=== PATIENT | male | born 1990 | race Caucasian/White ===

== ENCOUNTER 2018-02-24 15:48 | Emergency (ER) | payer OTHER, SELFPAY ==
[2018-02-24 15:49] VITALS: BP 133/74; PULSE 80; RESP 18; TEMP 36.7; O2SAT 100; BMI 25.9
--- NOTE | 2018-02-24 15:56 | RAD_ITS ---
STUDY: X-RAY - RIGHT SHOULDER REASON FOR EXAM: Male, 27 years old. Shoulder injury. TECHNIQUE: 4 view(s) of the shoulder. COMPARISON: None. FINDINGS: Normal glenohumeral articulation. Normal acromioclavicular joint. Normal acromion. Normal humeral head and visualized proximal humerus. The soft tissue structures are unremarkable. Normal visualized pulmonary apex. RAD/Shoulder min 2 Views IMPRESSION: Within normal limits x-ray examination of the shoulder. Electronically Signed: Mehnaz Sweeney MD at 16:17 EDT Tel , Service support ,
--- NOTE | 2018-02-24 16:26 | ED.VISSUMM ---
- ER Visit Summary Date of Service: 02/24/18 Chief Complaint: Right shoulder pain History of Present Illness: The patient is a 27 M [id number] presenting with right shoulder pain. He frequently dislocates his right shoulder but has never seen an orthopedic surgeon for. He states that he has dislocated it approximately 8-10 times this year, most recently 5 days ago. The pain typically resolves after a few days but it has now persisted. He denies paresthesias or weakness. He has not been wearing a sling are soft. Physical Examination: Mild tenderness right shoulder laterally but still has full range of motion. Strong distal pulse. Normal sensation over the axillary nerve distribution. Test Results: Right shoulder x-ray negative for acute process Emergency Department Course and Treatment: Was placed in a sling and swath. He was referred to orthopedics and I stressed the importance of follow-up since he is dislocating so often. He will return if worse. Treatment Plan: Follow-up up with orthopedics Disposition: Home stable Impression: Initial encounter right shoulder dislocation This note was generated with Spontly dictation software. It may contain incorrect words, spelling, and punctuation that were not noted in review of the chart prior to signing ED Disposition - Plan for ED Patient: Chief Complaint: Upper Extremity Injury Instructions: ED Shoulder Pain [facility] Prescriptions: Naproxen [Naprosyn] 500 mg PO BID #20 tablet Referrals: Jamari Gar MD [STAFF PHYSICIAN] -
== END 2018-02-24 16:53 | disposition home or self-care (01) ==
LOC: ED 16:20
PROVIDERS: Emergency Provider Emergency Medicine
DX: M24.411 Recurrent dislocation, right shoulder (principal)
CPT/HCPCS: 73030; 99282

== ENCOUNTER → 2018-03-06 08:55 | Outpatient (CLI) | payer OTHER, SELFPAY ==
--- NOTE | 2018-03-06 09:02 | MRI_ITS ---
STUDY: MRI ARTHROGRAM RIGHT SHOULDER REASON FOR EXAM: Male, 27 years old. Recurrent dislocation right shoulder. Right shoulder pain extending down arm. TECHNIQUE: T1 fat suppressed images were obtained in all three orthogonal planes. The exam was performed following intra-articular injection of 10ml of solution of .08 ml of Magnevist in 10ml of saline by Dr Carty There was some movement on this exam most notable on the axial and the ABER positions. COMPARISON: Images from the arthrogram prior to the MRI and x-ray right shoulder February 24, 2018 FINDINGS: There is intra-articular contrast distention of the glenohumeral articulation, secondary to the gadolinium injection, with adequate capsular distention. Normal biceps labral complex. Normal superior labrum. Normal anterior and posterior esther. Note that a subtle tear may be difficult to visualize due to the motion on multiple images There is humeral avulsion of the inferior glenohumeral ligament, refer to series 3 images 9 through 3. Only a wisp of the posterior aspect of the inferior glenohumeral ligament appears to remain attached as seen on image #4. I do not see evident cortical avulsion of the humerus. Rotator interval appears patulous, refer to image #11 series 7. There does appear Hill-Sachs deformity of the posterior superior humeral head with flattening of the humeral head and bone marrow edema, for instance refer to sagittal oblique images 6 and 7 series 6. Normal supraspinatus tendon. Normal infraspinatus tendon. Normal subscapularis tendon. Normal teres minor tendon. There is no demonstrated tear of the rotator cuff. Normal glenohumeral articulation. There is no osteochondral defect. MRI/Upper Ext Jt Only W/Contrast IMPRESSION: Hill-Sachs deformity of the posterior superior humeral head. There is motion on this study, I do not see evident labral Bankart but I do note that there appears tear of the inferior glenohumeral ligament. No evidence of rotator cuff tear. Electronically Signed: Arlene Whiting MD at 15:18 EST , Service support ,
--- NOTE | 2018-03-06 09:05 | RAD_ITS ---
CLINICAL HISTORY: Male, 27 years old. History of recurrent right shoulder dislocation. PROCEDURE: ARTHROGRAM - RIGHT SHOULDER. CONSENT: The procedure as well as the benefits and possible complications including infection and bleeding were explained to the patient. Informed consent was obtained. FLUOROSCOPY TIME (if supplied): (1:00) minutes/seconds. Injection Information: 10 cc of dilute MRI contrast material. Number of images obtained: 4 TECHNIQUE: (All elements of maximal sterile barrier technique followed, including US elements as applicable) The patient was in the supine position. The overlying skin was prepped and draped in the usual sterile fashion. Following local anesthetic application and under direct fluoroscopic guidance, a 22-gauge spinal needle was placed into the shoulder joint. 2 cc of Isovue-300 was injected for confirmation. Following this, 10 cc of dilute MRI contrast was injected. The patient tolerated the procedure well. RAD/Arthrogram Shoulder w/ MRI IMPRESSION: Successful right shoulder arthrogram with injection of dilute MRI contrast. The patient tolerated the procedure well. Electronically Signed: Jamar Carty MD at 11:14 EST Tel [phone], Service support ,
== END ==
PROVIDERS: Referring Provider Specialist; Visit Provider Specialist
DX: M24.411 Recurrent dislocation, right shoulder (principal)
CPT/HCPCS: 23350; 73222; 77002; A9577; Q9967

== ENCOUNTER 2022-04-15 16:48 | Emergency (ER) | payer BC, SELFPAY ==
[2022-04-15 16:49] VITALS: BP 141/102; PULSE 82; RESP 16; TEMP 37.3; O2SAT 97; BMI 27.6
--- NOTE | 2022-04-15 17:06 | ED.VIS.GI ---
HPI HPI - GI History of Present Illness Chief Complaint: Abd Pain Narrative Narrative: 32-year-old male past medical history of GERD for which he takes Prilosec presents with epigastric abdominal pain and burning that he has had for over a week. He said on Saturday [facility] and was told that he should increase his Prilosec to twice a day. He had been taking it daily last year but, was told by whoever was at the [facility] back then that he should only take it as needed. He describes pain in the epigastrium and sometimes a burning sensation in his chest. He quit smoking a year ago. He occasionally smokes marijuana. He denies any fevers or chills. No nausea or vomiting. No problems with diarrhea. No hematuria or dysuria. He states sometimes the pain in the epigastrium radiates towards the right. He does not really eat spicy foods any longer. He presents for evaluation because he states he is trying to get established with a primary care physician and cannot see anyone, and the [facility] recommended that he be evaluated. [facility] Medical History (Updated 04/15/22 @ 18:11 by Donta Cullen MD) GERD (gastroesophageal reflux disease) Home Medications NK 04/15/22 [History Last Taken Unknown] Allergy/AdvReac Type Severity Reaction Status Date / Time No Known Allergies Allergy Verified 04/15/22 16:49 Surgical History Dislocation, elbow closed Social History Smoking Status: Current some day smoker tobacco type: cigarettes alcohol intake: never ROS ROS ED ROS Narrative Constitutional: No fever, no chills. HEENT: No sore throat. No neck pain. No loss of vision. No rhinorrhea. Cardiovascular: No chest pain. Occasional burning sensation in chest. No palpitations. No pedal edema. Respiratory: No cough, no shortness of breath. Abdominal: Epigastric to right upper quadrant abdominal pain. No nausea. No vomiting. Genitourinary: No dysuria. No hematuria. Musculoskeletal: No myalgias. No arthralgias. Neurologic: No headaches. No dizziness. No lightheadedness. Skin: No rash. No change in color. Psychiatric: No depression. No anxiety. EXAM Physical Exam Narrative Exam Narrative: Afebrile. Vital signs noted. HEENT: Normocephalic. Atraumatic. PERRL, EOMI. Neck soft and supple. No point tenderness or step off. Cardiovascular: Regular rate and rhythm. No murmurs, rubs, or gallops appreciated. Respiratory: No tachypnea. Lungs clear to auscultation bilaterally. Gastrointestinal: Abdomen soft, mild tenderness epigastrium, negative Rutherford sign. Normoactive bowel sounds. No rebound or guarding. Neurological: Awake. Alert. Nonfocal, nonlateralizing. Skin: No rash. Normal color. No pallor. Musculoskeletal: No pedal edema. Full range of motion extremities. Const Vital Signs: 04/15/22 16:49 Temperature 99.1 F Temperature Source Temporal Pulse Rate 82 Respiratory Rate 16 Blood Pressure 141/102 H Blood Pressure Mean 115 Pulse Ox 97 Oxygen Delivery Method Room Air MDM MDM MDM Narrative Medical decision making narrative: I do not feel that imaging is indicated. I discussed with him acid reflux symptoms and he states he is already increasing his Prilosec to twice a day. I will obtain basic laboratory work including CBC, CMP, and lipase. CBC is grossly normal with a normal white count of 8.8, hemoglobin normal at 16.2, normal platelet count of 233. CMP is grossly normal except for chloride slightly elevated at 108. BUN and creatinine are normal. Glucose normal at 102 with an anion gap of 6. LFTs show AST low at 13 with ALT 27, normal alk phos of 73. Lipase normal at 223. I do not feel that any emergent imaging is indicated. I do feel that his epigastric pain may be more from peptic ulcer disease or gastritis. He will continue his Prilosec twice a day as previously directed by the [facility], and additionally he will take Mylanta at home. I gave him the number to Dr. Landeros with gastroenterology and he states he is trying to be established with Dr. Javier. I feel he can be discharged safely home with follow-up. Return instructions were reviewed. Disposition is discharged home in stable condition. Lab Data Attestation: I reviewed the patient's lab results. Labs: Laboratory Results - last 24 hr 04/15/22 04/15/22 17:20 17:20 WBC 8.8 RBC 5.10 Hgb 16.2 Hct 43.7 MCV 85.7 MCH 31.8 MCHC 37.1 H RDW Std Deviation 35.1 RDW Coeff of Blaze 11.1 L Plt Count 233 MPV 10.1 Immature Gran % (Auto) 0.200 Neut % (Auto) 62.0 Lymph % (Auto) 27.3 Fleming % (Auto) 8.6 Eos % (Auto) 1.4 Baso % (Auto) 0.5 Absolute Neuts (auto) 5.4 Absolute Lymphs (auto) 2.39 Nucleated RBC % 0 Sodium 140 Potassium 3.7 Chloride 108 H Carbon Dioxide 26.0 Anion Gap 6 BUN 14 Creatinine 1.12 Estim Creat Clear Calc 102.72 Est GFR (MDRD) Af Amer 99 Est GFR (MDRD) Non-Af 82 BUN/Creatinine Ratio 12.5 Glucose 102 Calcium 9.5 Total Bilirubin 0.80 AST 13 L ALT 27 Alkaline Phosphatase 73 Total Protein 8.1 Albumin 4.6 Globulin 3.5 Albumin/Globulin Ratio 1.3 Lipase 223 Discharge Plan Triage Chief Complaint: Abd Pain ED Provider: Donta Cullen Dx/Rx/DC Orders Clinical Impression: Acid reflux, Epigastric pain Instructions: ED GERD (Adult), ED Epigastric Pain Uncertain Cause Prescriptions: No Action NK Primary Care Provider: Care Physician,No Primary Referrals: Friend,Ayo, DO [Med Staff - Active Staff] - As soon as possible Care Physician,No Primary [Primary Care Provider] - Activity Restrictions/Additional Instructions: Increase your Prilosec to twice a day as previously directed by the [facility]. Follow-up with gastroenterology or your primary care physician as soon as possible. Disposition Disposition: Home, Self Care
[2022-04-15] MEDS: 0.9% Normal Saline 1,000 ML 1000 ML IV (17:26)
[2022-04-15 17:51] LABS: ALB/GLOB Ratio 1.3 RATIO (0.9-2.4); AST(SGOT) 13 U/L (15-37); Alanine Aminotransfer ALT/SGPT 27 U/L (16-61); Albumin, Serum 4.6 g/dL (3.2-5.0); Alkaline Phosphatase 73 U/L (45-117); Anion Gap 6 (5-15); BUN 14 mg/dL (7-18); BUN/Creat Ratio 12.5 RATIO (10-20); Calcium,Total 9.5 mg/dL (8.5-10.1); Chloride 108 mmol/L (98-107); Creatinine, Serum 1.12 mg/dL (0.70-1.30); EST Glomerular Filtration Rate 82 mL/min (>60); Est Glom Filt Rate - Afr Amer 99 mL/min (>60); Estimated Creatinine Clearance 102.72 ml/min; Globulin 3.5 g/dL (2.2-4.2); Glucose 102 mg/dL (74-106); Lipase 223 U/L (73-393); Potassium 3.7 mmol/L (3.5-5.1); Protein, Total 8.1 g/dL (6.4-8.2); Sodium Level 140 mmol/L (136-145)
[2022-04-15 17:58] LABS: Absolute Lymphocyte Count 2.39 X10^3/uL (0.83-4.51); Absolute Neutrophil Count 5.4 X10^3/uL (2.0-7.7); Basophil# 0.04 X10^3/uL; Basophil% 0.5 % (0-1); Eosinophil# 0.12 X10^3/uL; Eosinophils% 1.4 % (0-5); Hematocrit 43.7 % (40-54); Hemoglobin 16.2 g/dL (13.0-16.5); Lymphocyte # 2.39 X10^3/ul (0.83-4.51); Lymphocyte % 27.3 % (19-41); Mean Corp Hgb Conc 37.1 g/dL (32-36); Mean Corpuscular Hgb 31.8 pg (27.0-32.0); Mean Corpuscular Volume 85.7 fL (80-94); Mean Platelet Vol. 10.1 fl (6.2-12.0); Monocyte# 0.75 X10^3/uL; Monocyte% 8.6 % (0-10); NRBC Flagged by Analyzer 0 % (0-5); Neutrophil # 5.43 X10^3/uL (2.7-7.7); Platelet Count 233 K/mm3 (150-450); RBC Distribution Width CV 11.1 % (11.6-14.6); RBC Distribution Width SD 35.1 fl (35.1-43.9); White Blood Count 8.8 K/mm3 (4.4-11.0)
[2022-04-15 18:25] VITALS: BP 137/85; RESP 16; O2SAT 99
== END 2022-04-15 18:26 | disposition home or self-care (01) ==
PROVIDERS: Emergency Provider Emergency Medicine; Visit Provider Emergency Medicine
DX: K21.9 Gastro-esophageal reflux disease without esophagitis (principal); R10.13 Epigastric pain; F12.10 Cannabis abuse, uncomplicated; F17.210 Nicotine dependence, cigarettes, uncomplicated
CPT/HCPCS: 80053; 83690; 85025; 96360; 99283; J7030; A4216

== ENCOUNTER → 2022-06-14 | Outpatient (CLI) | payer BC, SELFPAY ==
--- NOTE | 2022-06-14 13:30 | RAD_ITS ---
STUDY: X-RAY - LEFT SHOULDER REASON FOR EXAM: Male, 32 years old. SHOULDER AND CHEST DISCOMFORT TECHNIQUE: view(s) of the shoulder. COMPARISON: None. FINDINGS: Normal glenohumeral articulation. Normal acromioclavicular joint. Normal acromion. Normal humeral head and visualized proximal humerus. The soft tissue structures are unremarkable. Normal visualized pulmonary apex. RAD/Shoulder min 2 Views IMPRESSION: Normal x-ray examination of the shoulder. Electronically Signed: Benjamin Borjas MD at 22:52 EST ,
--- NOTE | 2022-06-14 13:30 | RAD_ITS ---
EXAM: XR CERVICAL SPINE, 4 OR 5 VIEWS CLINICAL INDICATION: SHOULDER AND CHEST DISCOMFORT TECHNIQUE: Frontal, lateral and bilateral oblique views of the cervical spine. This report was created using DBVu report generation technology. COMPARISON: None. FINDINGS: VERTEBRAE: Loss of the normal cervical lordosis which may be due to muscle spasm or head positioning. No acute fracture or subluxation. DISC SPACES: Disc spaces are normal. Facet joints are normal. Neural foramina are intact. SOFT TISSUES: Normal. No prevertebral soft tissue widening. LUNG APICES: Clear. RAD/Cerv Spine 4 or 5 Views IMPRESSION: No acute bone or joint abnormality. Electronically Signed: Chaka Phillips MD at 10:30 EST ,
== END | disposition home or self-care (01) ==
LOC: MTRAD 13:29
PROVIDERS: PCP Family Medicine; Referring Provider Family Medicine; Visit Provider Family Medicine
DX: M25.512 Pain in left shoulder (principal); M54.2 Cervicalgia
CPT/HCPCS: 72050; 73030

== ENCOUNTER → 2022-07-13 | Outpatient (CLI) | payer BC, SELFPAY ==
[2022-07-13 10:13] LABS: Absolute Lymphocyte Count 2.38 X10^3/uL (0.83-4.51); Absolute Neutrophil Count 4.5 X10^3/uL (2.0-7.7); Basophil# 0.06 X10^3/uL; Basophil% 0.7 % (0-1); Eosinophil# 0.25 X10^3/uL; Eosinophils% 3.1 % (0-5); Hematocrit 47.5 % (40-54); Hemoglobin 16.8 g/dL (13.0-16.5); Lymphocyte # 2.38 X10^3/ul (0.83-4.51); Lymphocyte % 29.6 % (19-41); Mean Corp Hgb Conc 35.4 g/dL (32-36); Mean Corpuscular Hgb 31.1 pg (27.0-32.0); Mean Corpuscular Volume 87.8 fL (80-94); Mean Platelet Vol. 9.7 fl (6.2-12.0); Monocyte# 0.85 X10^3/uL; Monocyte% 10.6 % (0-10); NRBC Flagged by Analyzer 0 % (0-5); Neutrophil # 4.49 X10^3/uL (2.7-7.7); Neutrophil % 55.8 % (47-70); Platelet Count 246 K/mm3 (150-450); RBC Distribution Width CV 11.6 % (11.6-14.6); RBC Distribution Width SD 36.8 fl (35.1-43.9); Red Blood Count 5.41 M/mm3 (4.6-6.2); White Blood Count 8.1 K/mm3 (4.4-11.0)
[2022-07-13 10:52] LABS: ALB/GLOB Ratio 1.2 RATIO (0.9-2.4); AST(SGOT) 35 U/L (15-37); Alanine Aminotransfer ALT/SGPT 91 U/L (16-61); Albumin, Serum 4.5 g/dL (3.2-5.0); Alkaline Phosphatase 82 U/L (45-117); Anion Gap 9 (5-15); BUN 15 mg/dL (7-18); BUN/Creat Ratio 15.7 RATIO (10-20); Calcium,Total 9.9 mg/dL (8.5-10.1); Chloride 103 mmol/L (98-107); Creatinine, Serum 0.95 mg/dL (0.70-1.30); EST Glomerular Filtration Rate 98 mL/min (>60); Est Glom Filt Rate - Afr Amer 119 mL/min (>60); Globulin 3.8 g/dL (2.2-4.2); Glucose 99 mg/dL (74-106); Protein, Total 8.3 g/dL (6.4-8.2); Sodium Level 140 mmol/L (136-145)
[2022-07-16 16:09] LABS: Cytoplasmic Ab (C-ANCA) <1:20 titer (Neg:<1:20); Endomysial Antibody IgA Negative (Negative); Immunoglobulin A 280 mg/dL (90-386)
[2022-07-16 16:26] LABS: Gastrin, Serum 78 pg/mL (0-115); Perinuclear Ab (P-ANCA) <1:20 titer (Neg:<1:20); t-Transglutaminase IgA <2 U/mL (0-3)
[2022-07-17 10:08] LABS: Anti-Centromere B Ab <0.2 AI (0.0-0.9); Anti-Chromatin <0.2 AI (0.0-0.9); Anti-Jo <0.2 AI (0.0-0.9); Anti-Scleroderma-70 AB <0.2 AI (0.0-0.9); Beef <0.10 kU/L (Class 0); Corn <0.10 kU/L (Class 0); Egg, Whole <0.10 kU/L (Class 0); Milk (Cow) <0.10 kU/L (Class 0); Peanut <0.10 kU/L (Class 0); Pork <0.10 kU/L (Class 0); RNP Ab 0.5 AI (0.0-0.9); SJOGREN'S Anti-SS-A test 0.2 AI (0.0-0.9); SJOGREN'S Anti-SS-B test < 0.2 AI (0.0-0.9); Smith Ab <0.2 AI (0.0-0.9); Soybean <0.10 kU/L (Class 0); Wheat <0.10 kU/L (Class 0)
[2022-07-17 15:51] LABS: Anti-dsDNA Ab 1 IU/mL (0-9); Chocolate <0.10 kU/L (Class 0)
== END | disposition home or self-care (01) ==
LOC: LAB 09:16
PROVIDERS: PCP Family Medicine; Referring Provider Internal Medicine Gastroenterology; Visit Provider Internal Medicine Gastroenterology
DX: K21.9 Gastro-esophageal reflux disease without esophagitis (principal)
CPT/HCPCS: 36415; 80053; 82784; 82941; 83516; 85025; 86003; 86005; 86225; 86235; 86255; 86256

== ENCOUNTER → 2022-10-17 | Outpatient (CLI) | payer BC, SELFPAY ==
--- NOTE | 2022-10-17 14:35 | NEURO ---
NCS and/or EMG Patient Report Ordering Doctor: Silver Javier DATE OF SERVICE: 10/17/22 Vick presents electrodiagnostic testing of the left upper limb. He reports neck pain with radiation into the left shoulder arm. He reports intermittent numbness in the hand. Electrodiagnostic findings: Left median motor nerve demonstrates normal distal latency, amplitude and conduction velocity. Left ulnar motor nerve demonstrates normal distal latency, amplitude and conduction velocity. There is no drop in ulnar motor conduction across the elbow. Normal left median and ulnar F-waves. Sensory responses are within normal limits. Needle EMG testing was performed in the left upper limb. All muscles tested showed no evidence of denervation with normal motor unit action potentials. Electrodiagnostic assessment: This is a normal electrodiagnostic study of the left upper limb. There is no electrodiagnostic evidence for peripheral neuropathy, cervical radiculopathy or brachial plexopathy. Multi Select Codes Neurology Neurology Interp Codes: 16181-78 Musc test done w/n test comp (interp) and 30079-97 Nrv cndj test 7-8 studies (interp)
== END | disposition home or self-care (01) ==
LOC: PSN 14:02
PROVIDERS: PCP Family Medicine; Referring Provider Family Medicine; Visit Provider Family Medicine
DX: R20.2 Paresthesia of skin (principal)
CPT/HCPCS: 95886; 95910

== ENCOUNTER 2022-10-18 13:57 | Emergency (ER) | payer BC, SELFPAY ==
[2022-10-18 13:58] VITALS: BP 132/93; PULSE 90; RESP 15; TEMP 36.3; O2SAT 98; BMI 28.3
--- NOTE | 2022-10-18 14:15 | ED.RN ---
NO OLD EKGS
--- NOTE | 2022-10-18 14:26 | ED.VIS.CHEST ---
HPI <ALE Hay - Last Filed: 10/18/22 19:12> History of Present Illness Chief Complaint: Chest Pain Narrative Narrative: Patient presenting today with left-sided chest pain that radiates into the left arm that he has had for the past few months intermittently. He reports that this morning, he began to have pain that radiates into his left arm as well as left arm numbness. He denies any fever, chills, shortness of breath, abdominal pain, nausea, vomiting. He denies any personal cardiac history or significant family cardiac history. He denies a history of blood clots, recent surgery/procedures, recent travel, recent immobilization. PFSH <ALE Hay - Last Filed: 10/18/22 19:12> [facility] Medical History GERD (gastroesophageal reflux disease) Home Medications omeprazole 40 mg capsule,delayed release 40 mg PO DAILY 07/13/22 [History Last Taken Unknown] Allergy/AdvReac Type Severity Reaction Status Date / Time No Known Allergies Allergy Verified 04/15/22 16:49 Surgical History Dislocation, elbow closed Social History Smoking Status: Former smoker alcohol intake: never ROS <ALE Hay - Last Filed: 10/18/22 19:12> ROS ED Constitutional Constitutional ED: Denies chills or fever(s) Cardiovascular Cardiovascular: Reports chest pain; Denies palpitations Respiratory/Chest Respiratory/Chest: Denies cough or dyspnea Gastrointestinal Gastrointestinal: Denies abdominal pain, nausea or vomiting Musculoskeletal Musculoskeletal: Reports myalgias; Denies arthralgias Integumentary Denies rash Neurologic Neurologic: Reports paresthesias; Denies weakness EXAM <ALE Hay - Last Filed: 10/18/22 19:12> Physical Exam Const Vital Signs: 10/18/22 13:58 10/18/22 14:06 10/18/22 15:00 Temperature 97.3 F L Temperature Source Temporal Pulse Rate 90 Respiratory Rate 15 Respiratory Pattern Normal Blood Pressure 132/93 H Blood Pressure Mean 106 Pulse Ox 98 Oxygen Delivery Method Room Air Room Air 10/18/22 16:33 Temperature Temperature Source Pulse Rate 78 Respiratory Rate 16 Respiratory Pattern Blood Pressure 132/84 H Blood Pressure Mean 100 Pulse Ox 100 Oxygen Delivery Method Room Air Positive well nourished, well developed and no apparent distress General Appearance ED: well developed HEENT Reports normocephalic and head/scalp atraumatic Mouth ED: Yes moist mucous membranes normal Eyes PERRL and EOMs intact bilaterally Neck full ROM and supple Chest Wall inspection of chest normal Chest Narrative: Left-sided chest tenderness to palpation tenderness as well as along the medial aspect of the left upper arm. Resp normal respiratory effort and clear to auscultation bilaterally Cardio regular rate and regular rhythm GI soft to palpation, non-tender, non-distended and no masses Back/Spine normal ROM and normal to inspection Extremity normal to inspection and full ROM Neuro oriented x3, CN's II-XII intact bilaterally, moves all extremities, no focal motor deficits and no sensory deficits noted Sensorium / Orientation: awake and alert Psych mental status grossly normal and thought process normal Skin no rashes or lesions noted and no wounds <Dr. Berto Strong MD - Last Filed: 10/18/22 19:21> Physical Exam Const Vital Signs: 10/18/22 13:58 10/18/22 14:06 10/18/22 15:00 Temperature 97.3 F L Temperature Source Temporal Pulse Rate 90 Respiratory Rate 15 Respiratory Pattern Normal Blood Pressure 132/93 H Blood Pressure Mean 106 Pulse Ox 98 Oxygen Delivery Method Room Air Room Air 10/18/22 16:33 Temperature Temperature Source Pulse Rate 78 Respiratory Rate 16 Respiratory Pattern Blood Pressure 132/84 H Blood Pressure Mean 100 Pulse Ox 100 Oxygen Delivery Method Room Air [facility] <ALE Hay - Last Filed: 10/18/22 19:12> [facility] Narrative Medical decision making narrative: Patient reports that he has had left-sided intermittent chest pain for the past several months. He also reports a history of anxiety and does appear to be anxious on examination. There is a note from 10/17/2022 for a nerve conduction study that was performed on patient's left arm due to paresthesias that he has had and was unremarkable. Troponin obtained here and is WNL, EKG performed and is normal sinus rhythm. I do not think that patient's pain is cardiac in nature, he does have left-sided chest tenderness to palpation as well as tenderness along the medial aspect of the left upper arm. I have encouraged him to take anti-inflammatories for his pain. Additionally, he is not currently in any treatment for his anxiety, I encouraged him to follow-up with his primary care provider regarding this for appropriate treatment. He will be discharged home in stable condition and is comfortable with plan. I have personally performed a face to face assessment of the patient and have reviewed the CODY Note. I performed a substantive portion of the visit including all aspects of the following. My gallegos findings include: History is remarkable for left-sided chest pain that radiated to the left axilla. There is no associated symptoms. This has been an issue for several weeks if not longer. There are no precipitating, exacerbating or alleviating factors. Patient does admit to problems with anxiety 6 months ago. He has been under the care of a chiropractor and they have been working on an area near the medial aspect of his left scapula. He has also seen Dr. Landeros and was diagnosed with GERD based on review of office records. He denies indigestion, sour eructation and the pain is not positional. The pain is not related any type of specific food either. He denies black or maroon-colored stool. Exam is little eye contact during the history and physical. Patient has a monotone voice and psychomotor skills are slow. Lungs are clear to auscultation. Breath sounds are symmetric. Heart is regular. Rate is normal. Medical Decision Making [ ] Other additions or changes: [None] Lab Data Labs: Laboratory Results - last 24 hr 10/18/22 14:10 Troponin I High Sens 3 EKG Initial EKG: Comments: 85 bpm, normal sinus rhythm, no ST elevation, no signs of cardiac ischemia, reviewed and interpreted by attending ED physician <Dr. Berto Strong MD - Last Filed: 10/18/22 19:21> [facility] MDM Narrative Medical decision making narrative: I have personally performed a face to face assessment of the patient and have reviewed the CODY Note. I performed a substantive portion of the visit including all aspects of the following. My gallegos findings include: History is remarkable for left-sided chest pain that radiated to the left axilla. There is no associated symptoms. This has been an issue for several weeks if not longer. There are no precipitating, exacerbating or alleviating factors. Patient does admit to problems with anxiety 6 months ago. He has been under the care of a chiropractor and they have been working on an area near the medial aspect of his left scapula. He has also seen Dr. Landeros and was diagnosed with GERD based on review of office records. He denies indigestion, sour eructation and the pain is not positional. The pain is not related any type of specific food either. He denies black or maroon-colored stool. Exam is little eye contact during the history and physical. Patient has a monotone voice and psychomotor skills are slow. Lungs are clear to auscultation. Breath sounds are symmetric. Heart is regular. Rate is normal. Medical Decision Making [ ] Other additions or changes: [None] Lab Data Labs: Laboratory Results - last 24 hr 10/18/22 14:10 Troponin I High Sens 3 Discharge Plan Triage Chief Complaint: Chest Pain ED Midlevel Provider: Yulia Davis ED Provider: Berto Strong Dx/Rx/DC Orders Clinical Impression: Chest pain, non-cardiac, Anxiety Instructions: ED Chest Pain, Noncardiac Prescriptions: No Action omeprazole 40 mg capsule,delayed release(DR/EC) 40 mg PO DAILY Stand Alone Forms: Work / School Excuse Primary Care Provider: Silver Javier Referrals: Silver Javier DO [Primary Care Provider] - 3-5 Days Activity Restrictions/Additional Instructions: Follow-up with your PCP and return for any worsening of symptoms. Disposition Disposition: Home, Self Care Discharge Date/Time: 10/18/22 16:33
[2022-10-18 16:02] LABS: Troponin-I HS 3 pg/mL (3.0-78.0)
[2022-10-18 16:33] VITALS: BP 132/84; PULSE 78; RESP 16; O2SAT 100
== END 2022-10-18 16:33 | disposition home or self-care (01) ==
PROVIDERS: Physician Assistant; Emergency Provider Emergency Medicine; PCP Family Medicine; Visit Provider Emergency Medicine
DX: R07.89 Other chest pain (principal); F41.9 Anxiety disorder, unspecified; Z87.891 Personal history of nicotine dependence
CPT/HCPCS: 84484; 93005; 99283; A4216

== ENCOUNTER → 2023-04-08 | Outpatient (CLI) | payer OTHER, SELFPAY ==
[2023-04-08 09:29] LABS: Absolute Lymphocyte Count 3.11 X10^3/uL (0.83-4.51); Absolute Neutrophil Count 5.8 X10^3/uL (2.0-7.7); Basophil# 0.05 X10^3/uL; Basophil% 0.5 % (0-1); Eosinophil# 0.68 X10^3/uL; Eosinophils% 6.4 % (0-5); Hematocrit 45.8 % (40-54); Hemoglobin 16.1 g/dL (13.0-16.5); Lymphocyte # 3.11 X10^3/ul (0.83-4.51); Lymphocyte % 29.3 % (19-41); Mean Corp Hgb Conc 35.2 g/dL (32-36); Mean Corpuscular Hgb 30.7 pg (27.0-32.0); Mean Corpuscular Volume 87.4 fL (80-94); Mean Platelet Vol. 10.4 fl (6.2-12.0); Monocyte# 0.96 X10^3/uL; NRBC Flagged by Analyzer 0 % (0-5); Neutrophil # 5.78 X10^3/uL (2.7-7.7); Neutrophil % 54.4 % (47-70); Platelet Count 279 K/mm3 (150-450); RBC Distribution Width CV 11.8 % (11.6-14.6); RBC Distribution Width SD 37.6 fl (35.1-43.9); Red Blood Count 5.24 M/mm3 (4.6-6.2); White Blood Count 10.6 K/mm3 (4.4-11.0)
[2023-04-08 09:46] LABS: Insulin 29.5 mU/L (2.6-37.6); Vitamin D,25 Hydroxy 20.3 ng/mL
[2023-04-08 09:51] LABS: Hemoglobin A1c 4.9 % (3.8-5.6)
[2023-04-08 11:12] LABS: AST(SGOT) 26 U/L (15-37); Alanine Aminotransfer ALT/SGPT 62 U/L (16-61); Albumin, Serum 3.9 g/dL (3.2-5.0); Alkaline Phosphatase 82 U/L (45-117); Anion Gap 8 (5-15); BUN 16 mg/dL (7-18); BUN/Creat Ratio 15.8 RATIO (10-20); CRP, High Sensitivity Cardiac 3.35 mg/L; Calcium,Total 8.9 mg/dL (8.5-10.1); Chloride 106 mmol/L (98-107); Cholesterol 156 mg/dL (200); Creatinine, Serum 1.01 mg/dL (0.70-1.30); EST Glomerular Filtration Rate 92 mL/min (>60); Est Glom Filt Rate - Afr Amer 111 mL/min (>60); Ferritin 150 ng/mL (26-388); Free T3 3.1 pg/mL (2.18-3.98); Globulin 3.8 g/dL (2.2-4.2); Glucose 83 mg/dL (74-106); High Density Lipoprotein 34 mg/dL; Iron 92 ug/dL (65-175); Iron Binding Capacity,Total 306 ug/dL (250-450); PERCENT IRON SATURATION 30.1 % (15.0-55.0); Potassium 3.8 mmol/L (3.5-5.1); Protein, Total 7.7 g/dL (6.4-8.2); Sodium Level 139 mmol/L (136-145); T4 Free Direct 0.99 ng/dL (0.76-1.46); Thyroid Stim Hormone (TSH) 2.07 uIU/mL (0.358-3.74); Triglycerides 159 mg/dL; Very Low Density Lipoprotein 32 mg/dL (5-40)
== END | disposition home or self-care (01) ==
PROVIDERS: PCP Family Medicine
DX: Z00.00 Encounter for general adult medical examination without abnormal findings (principal); Z79.899 Other long term (current) drug therapy
CPT/HCPCS: 80053; 80061; 82306; 82533; 82728; 83036; 83525; 83540; 83550; 84439; 84443; 84481; 85025; 86141

== ENCOUNTER → 2023-05-15 | Outpatient (CLI) | payer OTHER, SELFPAY ==
--- NOTE | 2023-05-15 13:35 | STE_ITS ---
Reason For Study: CHEST PAIN Stress Results Protocol: Don Protocol Maximum Predicted HR: 189 bpm Target HR: 161 bpm % Maximum Predicted HR: 97 % DurationHeart Rate Stage (mm:ss) (bpm) BP Comment BASELINE 79 132/84 STAGE 1 3:00 111 142/70 STAGE 2 3:00 133 164/62 STAGE 3 3:00 151 176/60 STAGE 4 3:00 173 182/58 STAGE 5 1:30 184 / RECOVERY 113 140/60NO CHEST PAIN Stress Duration: 13:30 mm:ss Maximum Stress HR: 184 bpm Baseline Echocardiogram Findings Stress Echo Wall motion Data Resting WM Intermediate WM Stress WM ECHO/Stress Test Echo w/o Contrast Interpretation Summary Exercise stress echocardiogram. 33-year-old male with a history of chest pain. Stress protocol: Resting EKG demonstrates normal sinus rhythm with a rate of 80 bpm normal inter vals are noted resting blood pressure is 132/84 mmHg. The patient exercised according to the r egular Don protocol for total duration of 13 minutes and 30 seconds completing 1 minute and 30 seco nds into stage V of the Don protocol. The maximum heart rate attained was 184 bpm which was 97% o f maximum predicted heart rate the maximum workload was 17.2 metabolic equivalents. At rest there w ere no ST or T wave changes noted suggest ischemia and at peak exercise upsloping ST changes were n oted we did not meet the criteria for ischemia. No clinical angina was noted no arrhythmias were not ed. The peak blood pressure was 182/58 which was a normal blood pressure response to exercise. Stress echocardiogram. The resting echocardiogram demonstrated preserved left ventricular systolic fun ction estimated ejection fraction at 55%. With exercise there was thickening of all munoz and r eduction of low ventricular cavity size and peaking of ejection fraction at 70%. No new wall mo tion abnormalities were present. Conclusion: Normal exercise stress echo with no EKG or clinical criteria for ischemia at a high workload. Ordering Physician: Silver Javier Referring Physician: Silver Javier Performed By: Brodwolf, Hao, RCS
== END | disposition home or self-care (01) ==
LOC: CVS 13:32
PROVIDERS: PCP Family Medicine; Referring Provider Family Medicine; Visit Provider Family Medicine
DX: R07.9 Chest pain, unspecified (principal); R94.31 Abnormal electrocardiogram [ECG] [EKG]; I10 Essential (primary) hypertension
CPT/HCPCS: 93017; 93350

== ENCOUNTER → 2023-06-07 | Outpatient (CLI) | payer OTHER, SELFPAY ==
--- NOTE | 2023-06-07 10:17 | NM_ITS ---
CLINICAL: 33-year-old male with history of clinical gastroparesis. SEMI-SOLID PHASE 99m Tc SULFUR COLLOID GASTRIC EMPTYING STUDY COMPARISON: None available FINDINGS: The patient was administered 1.1 mCi of 99m Tc sulfur colloid mixed with oatmeal and consumed per os. Image acquisitions in the anterior-posterior were obtained for 60 minutes. There is prompt visualization of the stomach. There is no gastroesophageal reflux identified. Zero order kinetics are maintained throughout the duration of the acquisitions. The T ? linear fit was calculated to be 16.23 minutes, (Normal: 12-56 minutes). NM/Gastric Emptying Study IMPRESSION: 1. NORMAL 99m Tc sulfur colloid semi-solid phase (oatmeal) gastric emptying imaging examination. A. There is normal and preserved semi-solid phase gastric emptying compared to normal controls. (Cassandra et al, J Nucl Med Tech 38: 186, 2010). Electronically Signed: Khai Multani DO at 17:15 EST ,
--- OUTSIDE RECORDS SUMMARY | 2023-06-07 10:38 | XMS RPT_ITS | CCD ---
Author Name Unknown Address [address] [place] [address] Organization [facility] Care Team Providers Care Pond Sawyer Name Role Phone Mary Ellen Neal LPN Unavailable Unavailab le Mary Ellen Neal LPN Unavailable Unavailab le Unavailable Primary Care Provider Unavailabl e Unavailable Primary Care Provider Unavailabl e PROVIDER, UNKNOWN Referring Unavailable Medications Current Medications Medication Drug Class(es) Dates Sig (Normalized) Sig (Original) omeprazole 20 mg delayed release oral capsule (1 source) Proton Pump Inhibitor take 1 capsule by mouth once daily omeprazole (PRILOSEC) 20 MG delayed release capsule Take 20 mg by mouth daily 0 Active Probiotic Product (PROBIOTIC PO) (1 source) Probiotic Produc t (PROBIOTIC PO) Take by mouth 0 Active sodium chloride flush 0.9 % injection 3 mL (1 source) Start: 10-04-2020 sodium chloride flush 0.9 % injection 3 mL Completed/Discontinued Medications Medication Drug Class(es) Dates Sig (Normalized) Sig (Original) aluminum hydroxide 40 mg/ml / magnesium hydroxide 40 mg/ml / simethicone 4 mg/ml oral suspension (1 source) Start: 10-04-2020 End: 10-04-2020 aluminum & magnesium hydroxide-simethico ne (MAALOX) 200-200-20 MG/5ML suspension 30 mL calcium chloride 0.0014 meq/ml / potassium chloride 0.004 meq/ml / sodium chloride 0.103 meq/ml / sodium lactate 0.028 meq/ml injectable solution (2 sources) Start: 10-04-2020 End: 10-04-2020 lactated ringers bolus 1 ml haloperidol 5 mg/ml injection (1 source) Typical Antipsychotic Start: 10-04-2020 End: 10-04-2020 haloperidol lactate (HALDOL) injection 2.5 mg ondansetron 4 mg disintegrating oral tablet (2 sources) Serotonin-3 Receptor Antagonist Start: 10-04-2020 End: 10-04-2020 ondansetron (ZOFRAN-ODT) disintegrating tablet 8 mg Problems Problem Classification Problem Date Documented Da te Episodic/Chronic Abdominal pain (3 sources) Abdominal pain; Translations: [Epigastric pain] Onset: 08-15-2016 08-15-2016 Episodic Nausea and vomiting (3 sources) Nausea; Translations: [Nausea and vomiting] Onset: 09-03-2016 09-03-2016 Episodic Other connective tissue disease (1 source) Tibial collateral bursitis [Riley-Stieda ], left leg; Translations: [Tibial collateral bursitis (Riley-Stieda ), left leg] Onset: 11-24-2022 Episodic Screening or history of mental health and substance abuse (2 sources) Smoker; Translations: [Nicotine dependence, unspecified, uncomplicated] Onset: 09-03-2016 09-03-2016 Chronic Results Test Name Value Interpretation Reference Range Facil ity Vital Signs Date Time Vital Sign Value Performing Clinician Faci lity 10-04-2020 11:57-0400 Diastolic blood pressure 66 mm[Hg] Cain Laguna DO Work Phone: [facility] Work Phone: 10-04-2020 11:57-0400 Heart rate 70 /min Cain Laguna DO Work Phone: [facility] Work Phone: 10-04-2020 11:57-0400 Respiratory rate 16 /min Cain Laguna DO Work Phone: [facility] Work Phone: 10-04-2020 11:57-0400 SaO2% (BldA) [Mass fraction] 97 % Cain Laguna DO Work Phone: [facility] Work Phone: 10-04-2020 11:57-0400 Systolic blood pressure 135 mm[Hg] Cain Laguna DO Work Phone: [facility] Work Phone: 10-04-2020 08:12-0400 Body height 180.3 cm Cain Laguna DO Work Phone: [facility] Work Phone: 10-04-2020 08:12-0400 Body mass index (BMI) [Ratio] 27.89 kg/m2 Cain Laguna DO Work Phone: [facility] Work Phone: 10-04-2020 08:12-0400 Body temperature 96.8 [degF] Cain Laguna DO Work Phone: [facility] Work Phone: 10-04-2020 08:12-0400 Body weight 90.72 kg Cain Laguna DO Work Phone: [facility] Work Phone: 09-03-2016 07:35-0400 BMI (Body Mass Index) 27.72 kg/m2 Mary Ellen Siusheela [facility] Work Phone: 09-03-2016 07:35-0400 Body Temperature 97.6 [degF] Mary Ellen Siusheela [facility] Work Phone: 09-03-2016 07:35-0400 BP Diastolic 70 mm[Hg] Mary Ellen Siusheela [facility] Work Phone: 09-03-2016 07:35-0400 BP Systolic 122 mm[Hg] Mary Ellen Siusheela [facility] Work Phone: 09-03-2016 07:35-0400 Height 182.88 cm Mary Ellen Siusheela [facility] Work Phone: 09-03-2016 07:35-0400 Pulse (Heart Rate) 67 /min Mary Ellen Siusheela [facility] Work Phone: 09-03-2016 07:35-0400 Pulse Oximetry 99 % Mary Ellensetve Siusheela [facility] Work Phone: 09-03-2016 07:35-0400 Respiratory Rate 14 /min Mary Ellen Siusheela [facility] Work Phone: 09-03-2016 07:35-0400 Weight 92.72 kg Mary Ellen Neal [facility] Work Phone: Encounters Encounter Date Encounter Type Care Provider Facility Start: 11-24-2022 ambulatory UNKNOWN PROVIDER Facili ty:[facility] Start: 11-24-2022 End: 11-24-2022 Subsequent hospital visit by physician [facility] (1.5t) Radiology Procedures Date Procedure Procedure Detail Performing Clinician Start: 10-04-2020 Us abdominal real ti me w/image limited Cain Laguna DO Work Phone: Start: 10-04-2020 Ecg routine ecg w/le ast 12 lds w/i&r Cain Laguna DO Work Phone: Start: 10-04-2020 Comprehensive metabo lic panel Cain Laguna DO Work Phone: Start: 10-04-2020 Urnls dip stick/tabl et rgnt auto w/o microscopy Cain Laguna DO Work Phone: Start: 09-03-2016 End: 09-03-2016 Glucose Obed AGUILERA Work Phone: Plan of Treatment Date Care Activity Detail Author Start: 12-28-2022 Influenza vaccination INFLUENZA (#1) [facility] Start: 04-29-2022 DEPRESSION ASSESSMENT DEPRESSION ASS ESSMENT [facility] Start: 12-28-2020 Influenza vaccination Flu vacc ine (Season Ended) [facility] Work Phone: Start: 11-15-2020 COVID-19 VACCINE (3 - Pfizer series) COVID-19 VACCINE (3 - Pfizer series) [facility] Start: 09-03-2016 End: 09-03-2016 Appointment Appointment [facility] Work Phone: Start: 2011 DTaP/Tdap/Td vaccine (1 - Tdap) DTaP/Tdap/Td vaccine (1 - Tdap) [facility] Work Phone: Start: 2011 Urine microalbumin profile DTAP,TDAP,TD (1 - Tdap) [facility] Start: 2010 HEPATITIS C SCREENING HEPATITIS C FL BI [facility] Start: 2010 HIV SCREENING HIV SCREENING [facility] Start: 2007 HIV screening HIV screen [facility] Work Phone: Start: 2004 COVID-19 Vaccine (1) COVID-19 Vaccin e (1) [facility] Work Phone: Start: 1993 Varicella vaccine (1 of 2 - 2-dose childhood series) Varicella vaccine (1 of 2 - 2-dose childhood series) [facility] Work Phone: Start: 1992 HEPATITIS B (1 of 3 - 3-dose series) HEPATITIS B (1 of 3 - 3-dose series) [facility] Start: 1992 Hepatitis C screening Hepatitis C sc reen [facility] Work Phone: EKG 12 Lead - Chest Pain EKG 12 Lead - Chest Pain ECG STAT 10/04/2020 8:37 AM EDT [facility] Work Phone: Patient Education [facility] Now in Work Phone: Payers Date Payer Category Payer Unknown [employer] PPO [id number] 2021-Present [phone] [address] [place] [address] PPO [id number] 2021 Unknown [id number] 2020 Unknown BCBS [place] P PO [id number] 2020-Present [address] [place] [address] [id number] Social History Date Type Detail Facility Start: 10-04-2020 Tobacco smoking status NHIS Never smoker [facility] Work Phone: Start: 10-04-2020 Tobacco use and exposure Never used [facility] Start: 10-04-2020 Alcohol intake 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 (finding) [facility] Work Phone: Start: 10-04-2020 Alcohol intake [facility] Work Phone: Start: 1990 Sex Assigned At Not on file [facility] Work Phone: Tobacco smoking status PRIS Tobacco smoking consumption unknown [facility] Gender identity Not on file [facility] inic Evaluation note Note Date & Type Note Facility documented in this encounter [facility] Work Phone: Hospital Discharge instructions Instructions Note Date & Type Note Facility Hospital Discharge instructions Cain Laguna DO - 10/04/2020 Our family medicine and gastroenterology teams will call you today to schedule follow-up, call them yourself if you do not hear from them by lunchtime tomorrow. Continue your antacid as prescribed. Use [id number] Mylanta as needed. Add Zofran as needed and Bentyl as needed. Return to the emergency department for fever, if unable to tolerate fluids, if symptoms persist, change or worsen, or if any other problems arise. documented in this encounter [facility] Work Phone: Reason for visit Narrative Diagnostic Procedure Only (Routine) - Closed Note Date & Type Note Facility Referral ID Status Reason Start Date Expiration Date Visits Re quested Visits Authorized [id number] Closed 11/09/2022 04/28/2023 1 1 [facility] Reason for Referral Status Reason Specialty Diagnoses / Procedures Referred By Contact Referred To Contact [facility] Required Family Medicine / Internal Medicine Diagnoses Epigastric pain Non-intractable vomiting with nausea, unspecified vomiting type Cain Laguna DO [address] [place] [address] [facility] [address] [address] Scheduling Instructions [facility] [address] [place] [address] Status Reason Specialty Diagnoses / Procedures Referred By Contact Referred To Contact [facility] Required Gastroenterology Diagnoses Epigastric pain Non-intractable vomiting with nausea, unspecified vomiting type Cain Laguna DO [address] [place] [address] [facility] [address] [place] [address] Scheduling Instructions [facility] [address], [address] [place]. [address] Fax: Advance Directives No Advanced Directives Records FoundDocuments on File Type Date Recorded Patient Manager Unit Expl anation ACP-Advance Directive ACP-Power of Associate Financial Representative Summary Purpose Family History No Family History Records FoundNo Family History Records Found Additional Source Comments Reason for Visit (unrecogniz ed section and content) Scheduled Active and Recently Administ ered Medications (unrecognized section and content) Linked Groups Order Group 1: Saline lock IV (COMPLETED) Routine, CONTINUOUS, Starting on Sat10/04/20 at 0830, Until Specified And sodium chloride flush 0.9 % injection 3 mLJump to med 3 mL, Intravenous, EVERY 8 HOURS, First dose on Sat10/04/20 at 0830
Flush line with 3-5 mL
(unrecognized sect ion and content) No Status Records FoundNo Status Records Found INFORMATION SOURCE (unrecogn ized section and content) DATE CREATED AUTHOR AUTHOR'S ORGANIZ ATION 11/26/2022 [facility] Source Comments (unrecognize d section and content) In the event this informatio n is protected by the Federal Confidentiality of Alcohol and Drug Abuse Patient Records regulations: The Federal rules restrict any use of the information to criminally investigate or prosecute any alcohol or drug abuse patient.[facility] FOR RECORDS PERTAINING TO PATIENTS WHO ARE OR HAVE BEEN ENROLLED IN A CHEMICAL DEPENDENCY/SUBSTANCEABUSE PROGRAM, SOME INFORMATION MAY BE OMITTED. This clinical summary was aggregated from multiple sources. Caution should be exercised in using it in the provision of clinical care. This summary normalizes information from multiple sources, and as a consequence, information in this document may materially change the coding, format and clinical context of patient data. In addition, data may be omitted in some cases. CLINICAL DECISIONS SHOULD BE BASED ON THE PRIMARY CLINICAL RECORDS. [facility] [employer] [facility]. provides no warranty or guarantee of the accuracy or completeness of information in this document.
== END | disposition home or self-care (01) ==
PROVIDERS: PCP Family Medicine; Referring Provider Internal Medicine Gastroenterology; Visit Provider Internal Medicine Gastroenterology
DX: K21.9 Gastro-esophageal reflux disease without esophagitis (principal)
CPT/HCPCS: 78264; A9541

== ENCOUNTER 2023-09-09 16:30 | Outpatient (RCR) | payer OTHER, SELFPAY ==
--- NOTE | 2023-07-02 08:10 | HP.PTEVAL ---
Patient's Visit Information Visit Information Visit Information: MARCE IQBAL is a 33 year old M referred to Physical Therapy by Dr. Silver Javier DO with a diagnosis of . Date of Evaluation: 06/26/23 Physical Therapist: Jack Cool DPT Visit Plan Frequency: 1x/Week Duration: 6 Weeks Plan: - deep STM to L lats, SCM, sub occipitals, bicep, delts, - first rib mobilizations - stretching to neck and shoulder musculature - scapular strengthening - practice throwing and other softball movements, assess ROM and end range ability Subjective Subjective: Pt presents to PT with L shoulder and chest (muscular) tightness that began March 2022. Pain tends to be worse at end of day, sometimes has a heaviness in L armpit and chest. Dull ache is constant, but lifting can lead to sharp pain in L shoulder. Went to a chiropractor and they took x-rays, has some degeneration in neck and back. Pt had EMG done of [facility], no issues with conduction. 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 Pt reports daily tension headaches around his eyes. Pt able to sleep well, doesn't wake him up too often. Pt has been doing self-stretching pecs and shoulders, has a roller and massage guns to help with knot in back of shoulder. Pt has the major goal to get back to playing recreational softball. Pain Left Shoulder: Pain Intensity (Out of 10): 2 Pain Intensity Range: 1 and 6 Objective Objective: ROM: shoulder WNL with stretch in L lateral trunk in ABD and flex MMT: 5/5 with some twinge of pain with resisted ABD in LUE PALPATION: tightness in UT, sub-occipitals, SCM, scalenes, levator scap, biceps, pec major/minor, delt L more tender than R JOINT PLAY: hypomobile L GH joint, hypomobility in thoracic spine, hypomobility OBSERVATION: elevated acromion in supine, L higher than R POSTURE: rounded shoulders, forward head Adsons test: positive Balance/Special Test Scores Oswestry Neck Score: 11 Goals Goal 1:: Pt will report ISAAC <2/7 days per week Goal Time Frame: 2-4 Weeks Goal 2:: Pt will achieve full L shoulder ROM with no feeling of tightness Goal Time Frame: 2-4 Weeks Goal 3:: Pt will be able to perform softball specific movements (throwing and batting) with <2/10 pain Goal Time Frame: 2-4 Weeks Goal 4:: Pt will achieve <2 in elevation of L acromion to demonstrate decreased pec tightness Goal Time Frame: 2-4 Weeks Rehabilitation Potential Physical Therapy Diagnosis: Pt presents with L sided neck and shoulder pain and tightness. Pt would benefit from skilled PT services to address decreased tissues extensibility and improve tolerance to work and recreational tasks with less pain/discomfort. Rehabilitation Potential: Excellent Anticipated Interventions Patient/Client Instruction: Educate patient on: Condition and Plan of Care For the Purpose of:: To decrease pain, To increase ROM, To increase oxygenation perfusion, To improve muscle performance and motor function, To improve ability to perform ADL's, To increase tolerance to activity/condition/position, To improve performance and independence with ADL's, To improve ability of physical actions for home/community/work/leisure, To improve gait and locomotor functions, To improve health of tissue, To decrease soft tissue restriction, To increase flexibility/ROM, To assume or resume ADL's, To foster healthy habits, To improve self management, To prevent re-injury, To improve ability to perform tasks related to life management and To improve tolerance to ADL's Therapeutic Exercise to Include: Strength training, Postural training, Flexibilty training, Relaxation training, Passive ROM, Active ROM and Scapular Strength/Stabilization For the Purpose of:: To decrease pain, To increase ROM, To improve performance and independence with ADL's, To improve ability of physical actions for home/community/work/leisure, To improve health of tissue, To decrease soft tissue restriction, To increase flexibility/ROM, To assume or resume ADL's, To reduce risk of recurrence, To improve health and function, To foster healthy habits, To prevent re-injury, To improve ability to perform tasks related to life management and To improve tolerance to ADL's Manual Therapy Techniques to Include: Mobilization, Passive ROM, Functional dry needling and Soft tissue mobilization For the Purpose of:: To decrease pain, To increase ROM, To improve health of tissue, To decrease soft tissue restriction and To increase flexibility/ROM Cryotherapy (ice pack, ice massage): Yes Thermo therapy (hot pack): Yes Ultrasound (thermal/non thermal): Yes Intermittent cervical traction: Yes For the Purpose of:: To decrease pain, To increase ROM, To improve self management, To improve ability to perform tasks related to life management and To improve tolerance to ADL's Text: Thank you for the opportunity to evaluate your patient. For Medicare and Medicare HMO plans, please review the plan of care and approve it. It will need to be FAXED BACK to us at [phone] for Medicare purposes. For Medicare only, by signing this I certify the plan of care. Please let me know if there are questions or concerns regarding this plan of care. Physician Signature: Date:
== END 2023-09-09 19:00 | disposition home or self-care (01) ==
LOC: PT 16:30
PROVIDERS: PCP Family Medicine; Referring Provider Family Medicine; Visit Provider Family Medicine
DX: M79.12 Myalgia of auxiliary muscles, head and neck (principal); M79.18 Myalgia, other site
CPT/HCPCS: 97110; 97140; 97161; 97530

== ENCOUNTER → 2024-02-28 | Outpatient (CLI) | payer OTHER, SELFPAY ==
--- NOTE | 2024-02-28 13:09 | RAD_ITS ---
EXAM: XR CHEST, 2 VIEWS CLINICAL INDICATION: CHEST PAIN TECHNIQUE: Frontal and lateral views of the chest. COMPARISON: No relevant prior studies available. FINDINGS: LUNGS AND PLEURAL SPACES: Unremarkable. No consolidation or edema. No pneumothorax. No effusion. HEART: Unremarkable. Cardiac silhouette not enlarged. MEDIASTINUM: Central airways and mediastinal contour are unremarkable. BONES/JOINTS: Unremarkable. No acute fracture. SOFT TISSUES: Unremarkable. RAD/Chest PA and Lateral IMPRESSION: No radiographic evidence of acute cardiopulmonary disease. Electronically Signed: Cain Rivera MD at 22:17 EDT ,
== END | disposition home or self-care (01) ==
LOC: MTRAD 13:07
PROVIDERS: PCP Family Medicine; Referring Provider Family Medicine; Visit Provider Family Medicine
DX: R07.9 Chest pain, unspecified (principal)
CPT/HCPCS: 71046

== ENCOUNTER 2024-03-13 09:47 | Day surgery (SDC) | payer OTHER, SELFPAY ==
[2024-03-13] MEDS: Lidocaine Jelly 2% 20 ML Syringe (URO-JET) 1 APPLIC (09:58)
[2024-03-13 10:02] VITALS: BP 145/87; PULSE 68; RESP 16; TEMP 36.4; O2SAT 100
== END 2024-03-13 10:25 | disposition home or self-care (01) ==
PROVIDERS: PCP Family Medicine; Referring Provider Internal Medicine Gastroenterology; Visit Provider Internal Medicine Gastroenterology
PROC: F00ZJWZ Instrumental Swallowing and Oral Function Assessment using Swallowing Equipment (ICD-10-PCS; CPT 43235; principal; 2024-03-13 09:55)
DX: K22.4 Dyskinesia of esophagus (principal); K44.9 Diaphragmatic hernia without obstruction or gangrene
CPT/HCPCS: 91010; 91013

== ENCOUNTER → 2024-03-31 | Outpatient (CLI) | payer OTHER, SELFPAY | END | disposition home or self-care (01) | LOC: PSN 06:41 | PROVIDERS: PCP Family Medicine; Referring Provider Family Medicine; Visit Provider Family Medicine | DX: R07.89 Other chest pain (principal); R06.00 Dyspnea, unspecified | CPT/HCPCS: 94060; 94726; 94729 ==

== ENCOUNTER 2024-06-08 16:30 | Outpatient (RCR) | payer OTHER, SELFPAY ==
--- NOTE | 2024-01-24 08:24 | HP.PTEVAL ---
Patient's Visit Information Visit Information Visit Information: MARCE IQBAL is a 33 year old M referred to Physical Therapy by Dr. Silver Javier DO with a diagnosis of . Date of Evaluation: 12/23/23 Physical Therapist: Jack Cool DPT Visit Plan Frequency: 1x/Week Duration: 6 Weeks Plan: 1) DN, IASTIM to L pec, UT, lats. 2) stretching of lats, pec, 3) scapular and periscapular strengthening Subjective Subjective: Pt. is here today for his initial evaluation with diagnosis of chest and upper back pain on L side. he also reports that he has a recent R shoulder subluxation, currently K taped. Pt is known to this PT. He has recurrent tightness in back and chest, most on L side. 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 Pt. reports no N/T in either UE. Pt. reports chronic tightness in neck, chest and lats on L side. Pt. is hopeful to increase her ROM and decrease tightness with all activities. Pain L shoulder: Pain Intensity (Out of 10): 2 Pain Intensity Range: 0 and 4 L pectoral region: Pain Intensity (Out of 10): 1 Pain Intensity Range: 0 and 3 Objective Objective: POSTURE: Pt. has decent posture. Pt. Balance/Special Test Scores Oswestry Low Back Score: 5 Goals Goal 1:: LTG: Pt. to be I with HEP. Goal Time Frame: 4-6 Weeks Goal 2:: LTG: Pt. to have full cervical spine and B shoulder ROM without increase in symptoms. Goal Time Frame: 4-6 Weeks Goal 3:: LTG: Pt. complete all softball activities without increase in symptoms. Goal Time Frame: 4-6 Weeks Goal 4:: LTG: Pt. to complete all increased scapular and periscapular strength to 5/5 throughout reducing stress to UT and cervical spine with all activities. Goal Time Frame: 4-6 Weeks Rehabilitation Potential Rehabilitation Potential: Excellent Anticipated Interventions Patient/Client Instruction: Educate patient on: Condition, Plan of Care, Risk Factors and Benefits of Fitness Program For the Purpose of:: To facilitate caregiver knowledge, To improve self management, To prevent re-injury, To improve ability to perform tasks related to life management and To improve tolerance to ADL's Therapeutic Exercise to Include: Strength training, Power training, Endurance training, Postural training, Flexibilty training and Scapular Strength/Stabilization For the Purpose of:: To decrease pain, To increase ROM, To improve nutrient delivery to tissue, To increase oxygenation perfusion, To improve muscle performance and motor function, To improve health of tissue, To decrease soft tissue restriction and To increase flexibility/ROM Manual Therapy Techniques to Include: Mobilization, Functional dry needling and Soft tissue mobilization Comment: IASTIM For the Purpose of:: To decrease pain, To increase ROM, To improve health of tissue, To decrease soft tissue restriction and To increase flexibility/ROM Text: Thank you for the opportunity to evaluate your patient. For Medicare and Medicare HMO plans, please review the plan of care and approve it. It will need to be FAXED BACK to us at [phone] for Medicare purposes. For Medicare only, by signing this I certify the plan of care. Please let me know if there are questions or concerns regarding this plan of care. Physician Signature: Date:
== END 2024-06-08 19:00 | disposition home or self-care (01) ==
LOC: PT 16:30
PROVIDERS: PCP Family Medicine; Referring Provider Family Medicine; Visit Provider Family Medicine
DX: R07.9 Chest pain, unspecified (principal); M54.9 Dorsalgia, unspecified
CPT/HCPCS: 97110; 97161